=== PATIENT | male | born 1960 | race African-American/Black ===

== ENCOUNTER 2018-09-08 13:15 | Emergency (ER) | payer OTHER ==
[~2018-09-08] VITALS: Ht 188 cm; Wt 124.7 kg
[2018-09-08] MEDS ORDERED: MOBIC15 MG (13:25)
[2018-09-08] MEDS ORDERED: NORCO 10-325 T1 EACH PO (14:12)
[2018-09-08 14:42] VITALS: BP 155/103
== END 2018-09-08 14:42 | disposition home or self-care (01) ==
LOC: ER 13:15
DX: M25.512 Pain in left shoulder (principal); M54.9 Dorsalgia, unspecified; R51 Headache; V89.2XXA Person injured in unspecified motor-vehicle accident, traffic, initial encounter; Y93.I9 Activity, other involving external motion; Y92.410 Unspecified street and highway as the place of occurrence of the external cause; Y99.8 Other external cause status

== ENCOUNTER 2018-09-15 18:13 | Emergency (ER) | payer OTHER ==
[~2018-09-15] VITALS: Ht 188 cm; Wt 124.7 kg
[~2018-09-15 18:13] MED LIST: MOBIC15 MG; NORCO 10-325 T1 EACH PO
[2018-09-15] MEDS ORDERED: IBUPROFEN 600600 M1 PO (19:46)
[2018-09-15] MEDS ORDERED: FLEXERIL PO (19:46)
[2018-09-15 20:01] VITALS: BP 133/80
== END 2018-09-15 20:02 | disposition home or self-care (01) ==
LOC: ER 18:13
DX: S16.1XXA Strain of muscle, fascia and tendon at neck level, initial encounter (principal); V89.2XXA Person injured in unspecified motor-vehicle accident, traffic, initial encounter; Y93.89 Activity, other specified; Y92.89 Other specified places as the place of occurrence of the external cause; Y99.8 Other external cause status

== ENCOUNTER 2020-03-25 19:10 | Emergency (ER) | payer OTHER ==
[~2020-03-25] VITALS: Ht 188 cm; Wt 129.3 kg
[~2020-03-25 19:10] MED LIST changes: +FLEXERIL PO; +IBUPROFEN 600600 M1 PO
[2020-03-25] MEDS ORDERED: CYCLOBENZAPRINE5 MG PO (21:44)
[2020-03-25] MEDS ORDERED: NORCO 10-325 T1 EACH PO (21:44)
[2020-03-25] MEDS ORDERED: MEDROLDOSEPACK PO (21:44)
[2020-03-25 21:59] VITALS: BP 136/55
== END 2020-03-25 22:00 | disposition home or self-care (01) ==
LOC: ER 19:10
DX: M54.5 Low back pain (principal); R20.0 Anesthesia of skin; R20.2 Paresthesia of skin; Z79.899 Other long term (current) drug therapy

== ENCOUNTER 2020-04-12 11:23 | Emergency (ER) | payer OTHER ==
[~2020-04-12] VITALS: Ht 185.4 cm; Wt 102.1 kg
[~2020-04-12 11:23] MED LIST changes: +CYCLOBENZAPRINE5 MG PO; +MEDROLDOSEPACK PO
[2020-04-12] MEDS ORDERED: TIZANIDINE4 MG/1 TA1 PO (13:19)
[2020-04-12] MEDS ORDERED: MEDROLDOSEPACK PO (13:19)
[2020-04-12] MEDS ORDERED: HYDROCODON-ACE1 EAC7 PO (13:19)
[2020-04-12 14:12] VITALS: BP 112/80
== END 2020-04-12 14:13 | disposition home or self-care (01) ==
LOC: ER 11:23
DX: M54.31 Sciatica, right side (principal); Z79.899 Other long term (current) drug therapy